=== PATIENT | female | born 1960 | race Caucasian/White ===

== ENCOUNTER 2024-01-14 22:35 | Inpatient (IN) ==
[2024-01-14] MEDS: fentaNYL citrate PF 100 MCG/2 ML VIAL IV PRN (23:00)
[2024-01-14] MEDS: ONDANSETRON INJ 2 MG/ML 2 ML VIAL IV STA (23:00)
[2024-01-14 23:05] LABS: Basophils # (auto) 0.01 K/uL (0.00-0.20); Basophils % (auto) 0.1 %; Eosinophils # (auto) 0.06 K/uL (0.00-0.50); Eosinophils % (auto) 0.9 %; Hematocrit (blood only) 40.2 % (37.0-47.0); Hemoglobin 13.7 g/dl (12.0-16.0); Immature Granulocytes # (auto) 0.04 K/uL (0.01-0.20); Immature Granulocytes % (auto) 0.6 %; Lymphocytes # (auto) 1.35 K/uL (1.20-3.40); Lymphocytes % (auto) 19.3 %; Mean Corpuscular Hemoglobin 29.5 pg (25.0-34.0); Mean Corpuscular Hgb Conc 34.1 g/dL (32.0-36.0); Mean Corpuscular Volume 86.5 fL (80.0-100.0); Mean Platelet Volume 11.1 fL (9.4-12.4); Monocytes # (auto) 0.66 K/uL (0.11-0.59); Monocytes % (auto) 9.4 %; Neutrophils # (auto) 4.87 K/uL (1.40-6.50); Neutrophils % (auto) 69.7 %; Platelet Count 347 K/uL (130-400); RDW Coefficient of Variation 12.8 % (11.5-14.5); RDW Standard Deviation 39.9 fL (36.4-46.3); Red Blood Count 4.65 M/uL (4.20-5.40); White Blood Count 6.99 K/ul (4.8-10.8)
[2024-01-14 23:15] LABS: iSTAT Creatinine 1.1 mg/dl (0.6-1.3); iSTAT Hemoglobin 14.6 g/dl (12.0-16.0); iSTAT Ionized Calcium 1.09 mmol/l (1.12-1.32); iSTAT Potassium 4.6 mmol/L (3.3-5.0)
[2024-01-14] MEDS: OPTIRAY 320 100ml IV ONE (23:31)
[2024-01-14 23:40] LABS: Alanine Aminotransferase 25 U/L (7-52); Albumin Globulin Ratio 1.2 (0.9-2); Albumin Level 4.3 gm/dl (3.4-5.0); Alkaline Phosphatase 58 U/L (34-104); BUN Creatinine Ratio 17.8 (10-20); Bilirubin,Total 0.3 mg/dl (0.2-1.0); Blood Urea Nitrogen 19 mg/dl (6-23); Calcium 9.2 mg/dl (8.6-10.3); Carbon Dioxide 23 mmol/L (21-32); Chloride 102 mmol/L (98-107); Creatinine Clr Calc Pharmacy 51.7 ml/min; Est GFR (African American) 64.9 ml/min; Globulin 3.5 gm/dl (2.5-4.0); Glucose 98 mg/dl (70-99(Fasting)); Total Protein 7.8 gm/dl (6.0-8.3); Troponin I High Sensitivity 2.5 pg/ml (0-14)
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
[2024-01-15] MEDS: HYDROmorphone INJ 0.5 MG/0.5 ML SYR IV PRN ×2 (00:50→08:04)
--- NOTE | 2024-01-15 00:51 | CT Scan Report ---
Exam(s): CT ABDOMEN + PELVIS With Contrast IV Amt: 91 ML OPTIRAY 320 EXAM: CT Abdomen and Pelvis With Intravenous Contrast CLINICAL HISTORY: Reason for exam: Trauma. TECHNIQUE: Axial computed tomography images of the abdomen and pelvis with intravenous contrast. CTDI is 21.59 mGy and DLP is 729.57 mGy-cm. Automated exposure control was utilized for the study. A dose lowering technique was utilized adhering to the principles of ALARA. CONTRAST: Patient received 91 ML OPTIRAY 320 of IV contrast COMPARISON: No relevant prior studies available. FINDINGS: Lung bases: Unremarkable. No mass. No consolidation. ABDOMEN: Liver: Hepatic steatosis. Gallbladder and bile ducts: Unremarkable. No calcified stones. No ductal dilation. Pancreas: Unremarkable. No mass. No ductal dilation. Spleen: Unremarkable. No splenomegaly. Adrenals: Unremarkable. No mass. Kidneys and ureters: Unremarkable. No solid mass. No hydronephrosis. Stomach and bowel: Mild fecal retention, correlate for constipation. No mucosal thickening. No small bowel obstruction. No free air. PELVIS: Appendix: No findings to suggest acute appendicitis. Bladder: Unremarkable. No mass. Reproductive: Unremarkable as visualized. ABDOMEN and PELVIS: Intraperitoneal space: See above. Bones/joints: No acute fracture. No dislocation. Soft tissues: Unremarkable. Vasculature: Unremarkable. No abdominal aortic aneurysm. Lymph nodes: Unremarkable. No enlarged lymph nodes. IMPRESSION: Mild fecal retention, correlate for constipation. Electronically signed by: Hair Emanuel MD 01/15/24 00:50 AM
[2024-01-15 01:34] LABS: Troponin I High Sensitivity 4.3 pg/ml (0-14)
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
[2024-01-15 04:09] LABS: Appearance Urine Clear (Clear); Bacteria Urine Automated None Seen (None Seen); Bilirubin Urine Negative (Negative); Blood Urine Negative (Negative); Cast Urine Automated 0-2 /lpf (0-2); Color Urine Yellow; Epithelial Cell Urine Auto 0-2 /hpf (0-2); Glucose Urine UA Negative (Negative); Ketones Urine Negative (Negative); Leukocyte Esterase Urine Negative (Negative); Nitrite Urine Negative (Negative); Protein Urine Trace (Negative); RBC Urine Automated 0-2 /hpf (0-2); Specific Gravity Urine > 1.045 (1.000-1.030); Urobilinogen Urine Negative (Negative); WBC Urine Automated 0-5 /hpf (0-5); pH Urine 5.5 (4.5-7.5)
[2024-01-15] MEDS ORDERED: NITROGLYCERIN SL 0.4 MG/TAB TAB SL PRN (04:50)
[2024-01-15] MEDS: SODIUM CHLORIDE 0.9% 1,000 ML IV SCH (05:16)
[2024-01-15] MEDS: oxyCODONE HCL IR 5 MG TAB (IMMEDIATE RELEASE) PO PRN (05:16)
[2024-01-15] MEDS ORDERED: ARTIFICIAL TEARS OP PRN (05:18)
[2024-01-15] MEDS: ENOXAPARIN INJ 40 MG/0.4 ML SYR SQ SCH (05:19)
[2024-01-15] MEDS: fentaNYL citrate PF 100 MCG/2 ML VIAL ONE (06:38)
[2024-01-15] MEDS: ACETAMINOPHEN 325 MG TAB PO PRN (06:48)
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
[2024-01-15 06:52] LABS: Basophils # (auto) 0.01 K/uL (0.00-0.20); Basophils % (auto) 0.2 %; Eosinophils # (auto) 0.01 K/uL (0.00-0.50); Eosinophils % (auto) 0.2 %; Hemoglobin 13.5 g/dl (12.0-16.0); Immature Granulocytes # (auto) 0.02 K/uL (0.01-0.20); Immature Granulocytes % (auto) 0.3 %; Lymphocytes % (auto) 15.7 %; Mean Corpuscular Hemoglobin 29.4 pg (25.0-34.0); Mean Corpuscular Hgb Conc 32.9 g/dL (32.0-36.0); Mean Corpuscular Volume 89.3 fL (80.0-100.0); Mean Platelet Volume 10.6 fL (9.4-12.4); Monocytes # (auto) 0.72 K/uL (0.11-0.59); Monocytes % (auto) 11.3 %; Neutrophils # (auto) 4.61 K/uL (1.40-6.50); Neutrophils % (auto) 72.3 %; Platelet Count 275 K/uL (130-400); RDW Coefficient of Variation 12.9 % (11.5-14.5); RDW Standard Deviation 42.2 fL (36.4-46.3); Red Blood Count 4.59 M/uL (4.20-5.40); White Blood Count 6.37 K/ul (4.8-10.8)
[2024-01-15 07:03] LABS: BUN Creatinine Ratio 15.7 (10-20); Calcium 8.7 mg/dl (8.6-10.3); Creatinine Clr Calc Pharmacy 54.2 ml/min; Est GFR (African American) 68.8 ml/min; Est GFR (Non-African American) 59.3 ml/min; Potassium 4.1 mmol/L (3.5-5.1)
[2024-01-15 07:27] LABS: Magnesium 1.9 mg/dl (1.7-2.4)
[2024-01-15] MEDS: CHOLECALCIFEROL 25 MCG (1000 UNITS) TAB PO SCH (08:00)
[2024-01-15] MEDS: DULoxetine HCL 60 MG CAP PO SCH (08:01)
[2024-01-15] MEDS: NIFEdipine EXTENDED REL 30 MG TABCR PO SCH (08:01)
[2024-01-15] MEDS: VALSARTAN 80 MG TAB PO SCH (08:02)
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
--- NOTE | 2024-01-15 09:51 | Electrocardiogram Report ---
Test Reason : Blood Pressure : / mmHG Vent. Rate : 088 BPM Atrial Rate : 088 BPM P-R Int : 142 ms QRS Dur : 090 ms QT Int : 366 ms P-R-T Axes : 055 029 038 degrees QTc Int : 442 ms Normal sinus rhythm Nonspecific ST abnormality Abnormal ECG When compared with ECG of 14-JAN-2024 22:44, (unconfirmed) No significant change was found Confirmed by Amor Patten ([id number]) on 01/15/2024 9:51:50 AM Referred By: REFERRED SELF Confirmed By:Oscar Patten
--- NOTE | 2024-01-15 09:52 | Electrocardiogram Report ---
Test Reason : Blood Pressure : / mmHG Vent. Rate : 087 BPM Atrial Rate : 087 BPM P-R Int : 138 ms QRS Dur : 090 ms QT Int : 354 ms P-R-T Axes : 054 028 031 degrees QTc Int : 425 ms Normal sinus rhythm Normal ECG When compared with ECG of 06-MAY-2021 18:44, No significant change was found Confirmed by Amor Patten ([id number]) on 01/15/2024 9:52:13 AM Referred By: REFERRED SELF Confirmed By:Oscar Patten
[2024-01-15] MEDS: traZODone HCL 100 MG TAB PO PRN (13:48)
[2024-01-15] MEDS: ACETAMINOPHEN 1,000 MG/100 ML VIAL IV SCH (15:00)
[2024-01-15] MEDS: DOCUSATE SODIUM 100 MG CAP PO SCH (20:17)
[2024-01-15] MEDS: traZODone HCL 100 MG TAB PO STA (21:21)
[2024-01-15] MEDS: KETOROLAC TROMETHAMINE 15 MG/ML VIAL IV PRN (22:12)
[2024-01-15] MEDS: oxyCODONE HCL IR 5 MG TAB (IMMEDIATE RELEASE) PO STA (23:02)
[2024-01-16 07:56] LABS: Hematocrit (blood only) 33.4 % (37.0-47.0); Hemoglobin 10.7 g/dl (12.0-16.0); Mean Corpuscular Hemoglobin 28.9 pg (25.0-34.0); Mean Corpuscular Volume 90.3 fL (80.0-100.0); Mean Platelet Volume 10.8 fL (9.4-12.4); Platelet Count 229 K/uL (130-400); RDW Coefficient of Variation 13.1 % (11.5-14.5); RDW Standard Deviation 43.5 fL (36.4-46.3); White Blood Count 5.16 K/ul (4.8-10.8)
[2024-01-16] MEDS: oxyCODONE HCL IR 5 MG TAB (IMMEDIATE RELEASE) PO PRN (08:12)
[2024-01-16 08:14] LABS: Albumin Globulin Ratio 1.3 (0.9-2); Albumin Level 3.4 gm/dl (3.4-5.0); BUN Creatinine Ratio 11.7 (10-20); Bilirubin,Total 0.3 mg/dl (0.2-1.0); Calcium 8.7 mg/dl (8.6-10.3); Est GFR (African American) 62.1 ml/min; Est GFR (Non-African American) 53.6 ml/min; Globulin 2.7 gm/dl (2.5-4.0); Potassium 4.1 mmol/L (3.5-5.1); Total Protein 6.1 gm/dl (6.0-8.3)
[2024-01-16] MEDS: SODIUM CHLORIDE 0.9% 1,000 ML IV SCH (10:12)
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
--- NOTE | 2024-01-16 17:41 | Electrocardiogram Report ---
Test Reason : Blood Pressure : / mmHG Vent. Rate : 091 BPM Atrial Rate : 091 BPM P-R Int : 142 ms QRS Dur : 082 ms QT Int : 318 ms P-R-T Axes : 055 061 063 degrees QTc Int : 391 ms Poor data quality, interpretation may be adversely affected Normal sinus rhythm Nonspecific ST abnormality When compared with ECG of 15-JAN-2024 00:58, Nonspecific T wave abnormality, worse in Inferior leads QT has shortened Confirmed by Amor Patten ([id number]) on 01/16/2024 5:40:38 PM Referred By: REFERRED SELF Confirmed By:Oscar Patten
[2024-01-16] MEDS ORDERED: LORazepam 1 MG in SYRINGE 0.5 ML IV PRN (17:49)
[2024-01-16] MEDS: traZODone HCL 100 MG TAB PO PRN (20:26)
[2024-01-16] MEDS: KETOROLAC TROMETHAMINE 15 MG/ML VIAL IV PRN (20:26)
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
[2024-01-16] MEDS: THIAMINE HCL 100 MG in SYRINGE 9 ML IV STA (23:14)
[2024-01-16] MEDS: LORazepam 0.5 MG in SYRINGE 0.25 ML IV STA (23:14)
[2024-01-17] MEDS: MELATONIN 3 MG TAB PO PRN (02:57)
[2024-01-17 06:16] LABS: Hemoglobin 10.6 g/dl (12.0-16.0); Mean Corpuscular Hgb Conc 32.1 g/dL (32.0-36.0); Mean Corpuscular Volume 90.4 fL (80.0-100.0); Mean Platelet Volume 11.2 fL (9.4-12.4); Platelet Count 224 K/uL (130-400); RDW Coefficient of Variation 12.6 % (11.5-14.5); RDW Standard Deviation 42.1 fL (36.4-46.3); Red Blood Count 3.65 M/uL (4.20-5.40); White Blood Count 4.53 K/ul (4.8-10.8)
[2024-01-17 06:40] LABS: Albumin Globulin Ratio 1.3 (0.9-2); Albumin Level 3.3 gm/dl (3.4-5.0); BUN Creatinine Ratio 13.3 (10-20); Bilirubin,Total 0.3 mg/dl (0.2-1.0); Calcium 8.5 mg/dl (8.6-10.3); Creatinine Clr Calc Pharmacy 62.2 ml/min; Globulin 2.6 gm/dl (2.5-4.0); Total Protein 5.9 gm/dl (6.0-8.3)
[2024-01-17] MEDS: MULTIVITAMIN TAB PO SCH (08:14)
[2024-01-17] MEDS: FOLIC ACID 1 MG TAB PO SCH (08:14)
[2024-01-17] MEDS: THIAMINE HCL 100 MG TAB PO SCH (08:14)
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
[2024-01-17] MEDS ORDERED: OLANZAPINE 2.5 MG TAB PO PRN (14:33)
--- NOTE | 2024-01-17 16:28 | XRay Report ---
XR sacrum coccyx min 2V HISTORY: 63 years-old Female lower back pain acute low back pain without reported trauma COMPARISON: Thoracolumbar radiographs of same day, CT abdomen and pelvis 01/14/2024 TECHNIQUE: 3 views of the sacrum and coccyx. FINDINGS: There is mild degeneration of the SI joints. No acute fracture, subluxation or osseous erosion is zeinab ntified. IMPRESSION: No acute osseous abnormality. ACT 112: Negative or not required by law. The above report was generated using voice recognition software. It may contain grammatical, syntax o r spelling errors. Electronically signed by: Chris Frost M.D. 01/17/2024 4:27 PM
--- NOTE | 2024-01-17 17:13 | Electrocardiogram Report ---
Test Reason : Blood Pressure : / mmHG Vent. Rate : 067 BPM Atrial Rate : 067 BPM P-R Int : 166 ms QRS Dur : 086 ms QT Int : 412 ms P-R-T Axes : 069 052 069 degrees QTc Int : 435 ms Normal sinus rhythm Normal ECG When compared with ECG of 16-JAN-2024 06:17, No significant change was found Confirmed by Amor Patten ([id number]) on 01/17/2024 5:13:19 PM Referred By: REFERRED SELF Confirmed By:Oscar Patten
--- NOTE | 2024-01-17 17:19 | XRay Report ---
XR thoracolumbar spine 2V CLINICAL HISTORY: back pain TECHNIQUE: 2 views of the thoracolumbar spine were obtained. Comparison: None available at the time of this dictation. FINDINGS: No fractures or subluxations are identified. Minimal degenerative changes are seen. Alignment appears unremarkable. No soft tissue abnormality is seen. IMPRESSION: No acute fracture or subluxation. ACT 112: Negative or not required by law. Electronically signed by: Benoit Olvera M.D. 01/17/2024 5:18 PM
[2024-01-17] MEDS: OLANZapine ZYDIS 5 MG ORALLY DIS. TAB PO SCH (19:57)
[2024-01-17] MEDS: POLYETHYLENE (MIRALAX) 17 GM PACK PO PRN (19:57)
[2024-01-17] MEDS: oxyCODONE HCL IR 5 MG TAB (IMMEDIATE RELEASE) PO PRN (19:57)
[2024-01-18 07:45] LABS: Hematocrit (blood only) 32.2 % (37.0-47.0); Hemoglobin 10.5 g/dl (12.0-16.0); Mean Corpuscular Hgb Conc 32.6 g/dL (32.0-36.0); Mean Platelet Volume 11.2 fL (9.4-12.4); Platelet Count 238 K/uL (130-400); RDW Coefficient of Variation 12.7 % (11.5-14.5); RDW Standard Deviation 41.9 fL (36.4-46.3); Red Blood Count 3.62 M/uL (4.20-5.40)
[2024-01-18 08:17] LABS: Albumin Globulin Ratio 1.2 (0.9-2); Albumin Level 3.1 gm/dl (3.4-5.0); BUN Creatinine Ratio 14.4 (10-20); Bilirubin,Total 0.3 mg/dl (0.2-1.0); Calcium 8.4 mg/dl (8.6-10.3); Creatinine Clr Calc Pharmacy 62.3 ml/min; Globulin 2.5 gm/dl (2.5-4.0); Potassium 3.9 mmol/L (3.5-5.1); Total Protein 5.6 gm/dl (6.0-8.3)
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
[2024-01-18] MEDS: OLANZapine ZYDIS 5 MG ORALLY DIS. TAB PO SCH (20:09)
[2024-01-19 07:33] LABS: Hematocrit (blood only) 35.4 % (37.0-47.0); Hemoglobin 11.5 g/dl (12.0-16.0); Mean Corpuscular Hemoglobin 29.3 pg (25.0-34.0); Mean Corpuscular Hgb Conc 32.5 g/dL (32.0-36.0); Mean Corpuscular Volume 90.1 fL (80.0-100.0); Mean Platelet Volume 10.4 fL (9.4-12.4); Platelet Count 281 K/uL (130-400); RDW Coefficient of Variation 12.9 % (11.5-14.5); RDW Standard Deviation 42.5 fL (36.4-46.3); Red Blood Count 3.93 M/uL (4.20-5.40); White Blood Count 3.73 K/ul (4.8-10.8)
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
[2024-01-19 07:45] LABS: BUN Creatinine Ratio 14.9 (10-20); Calcium 8.5 mg/dl (8.6-10.3); Creatinine Clr Calc Pharmacy 65.5 ml/min; Est GFR (African American) 83.3 ml/min; Est GFR (Non-African American) 71.9 ml/min; Phosphorus 3.2 mg/dl (2.5-4.9)
[2024-01-19] MEDS: bisacodyL 5 MG TABEC PO PRN (08:29)
[2024-01-19 08:51] LABS: Magnesium 1.9 mg/dl (1.7-2.4)
[2024-01-19] MEDS: LIDOCAINE 5% 1 PATCH TD SCH (11:50)
--- NOTE | 2024-01-19 15:25 | XRay Report ---
XR chest 1V portable HISTORY: 63 years-old Female SOB acute shortness of breath COMPARISON: Chest CT 01/14/2024 TECHNIQUE: AP view the chest FINDINGS: Cardiac silhouette is upper limits of normal in size. No pneumothorax, pleural effusion or airspace c onsolidation. Bones appear grossly intact. IMPRESSION: No acute process. ACT 112: Negative or not required by law. The above report was generated using voice recognition software. It may contain grammatical, syntax o r spelling errors. Electronically signed by: Chris Frost M.D. 01/19/2024 3:23 PM
[2024-01-20 06:22] LABS: Mean Corpuscular Hemoglobin 28.8 pg (25.0-34.0); Mean Corpuscular Hgb Conc 32.4 g/dL (32.0-36.0); Mean Platelet Volume 10.5 fL (9.4-12.4); Platelet Count 312 K/uL (130-400); RDW Standard Deviation 42.1 fL (36.4-46.3); Red Blood Count 3.82 M/uL (4.20-5.40); White Blood Count 4.06 K/ul (4.8-10.8)
[2024-01-20 06:33] LABS: BUN Creatinine Ratio 7.5 (10-20); Calcium 8.5 mg/dl (8.6-10.3); Creatinine Clr Calc Pharmacy 71.5 ml/min; Est GFR (African American) 92.2 ml/min; Est GFR (Non-African American) 79.6 ml/min; Magnesium 1.8 mg/dl (1.7-2.4); Phosphorus 3.7 mg/dl (2.5-4.9); Potassium 3.4 mmol/L (3.5-5.1)
[2024-01-20] MEDS: POTASSIUM CHLORIDE CRTAB 20 MEQ TABCR PO STA (10:42)
[2024-01-20] MEDS: OPTIRAY 320 125ml IV ONE (11:18)
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
[2024-01-20] MEDS: FUROSEMIDE INJ 20 MG/2 ML VIAL IV ONE (13:44)
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
[2024-01-20 15:19] LABS: Hematocrit (blood only) 38.5 % (37.0-47.0); Hemoglobin 12.8 g/dl (12.0-16.0)
[2024-01-20] MEDS: ACETAMINOPHEN 1,000 MG/100 ML VIAL IV SCH (15:19)
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
[2024-01-20] MEDS: SOD PHOSPHATE/SOD BIPHOSPHATE ENEMA 132 ML BTL PR PRN (18:01)
--- NOTE | 2024-01-20 18:34 | XCELERA ---
[id number]
[2024-01-21 06:53] LABS: Hematocrit (blood only) 37.4 % (37.0-47.0); Hemoglobin 12.6 g/dl (12.0-16.0); Mean Corpuscular Hemoglobin 29.6 pg (25.0-34.0); Mean Corpuscular Hgb Conc 33.7 g/dL (32.0-36.0); Mean Platelet Volume 10.5 fL (9.4-12.4); Platelet Count 337 K/uL (130-400); RDW Coefficient of Variation 13.2 % (11.5-14.5); RDW Standard Deviation 41.9 fL (36.4-46.3); Red Blood Count 4.25 M/uL (4.20-5.40); White Blood Count 3.25 K/ul (4.8-10.8)
--- NOTE | 2024-01-21 06:58 | XRay Report ---
XR chest 1V portable HISTORY: 63 years-old Female Sternal fx , check air space COMPARISON: 01/20/2024 TECHNIQUE: AP view of the chest FINDINGS: Cardiac silhouette is unchanged. No pneumothorax or pleural effusion. The lungs appear clear. Bones a ppear grossly intact. IMPRESSION: No acute process. ACT 112: Negative or not required by law. The above report was generated using voice recognition software. It may contain grammatical, syntax o r spelling errors. Electronically signed by: Chris Frost M.D. 01/21/2024 6:57 AM
[2024-01-21 07:10] LABS: BUN Creatinine Ratio 15.5 (10-20); Calcium 9.3 mg/dl (8.6-10.3); Creatinine Clr Calc Pharmacy 68.1 ml/min; Est GFR (African American) 86.9 ml/min; Magnesium 2.1 mg/dl (1.7-2.4); Phosphorus 4.7 mg/dl (2.5-4.9); Potassium 3.6 mmol/L (3.5-5.1)
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
[2024-01-21] MEDS: ONDANSETRON INJ 2 MG/ML 2 ML VIAL IV PRN (08:52)
[2024-01-21] MEDS: oxyCODONE HCL IR 5 MG TAB (IMMEDIATE RELEASE) PO PRN (11:38)
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
[2024-01-21] MEDS: KETOROLAC 30 MG/ML VIAL IV PRN (16:13)
== END 2024-01-21 17:18 | disposition home or self-care (01) | DRG 565 ==
LOC: ED 22:35 → EDINP 01-15 03:25 → SUATTDRO 01-15 03:25 → 2N 01-15 04:50 → 3N 01-19 10:16